=== PATIENT | male | born 1965 | race Caucasian/White ===

== ENCOUNTER 2023-04-11 13:51 | Emergency (ER) | payer OTHER ==
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
[2023-04-11 15:37] VITALS: RESP 18
[2023-04-11 17:04] VITALS: BP 123/82; PULSE 89; TEMP 98.4
== END 2023-04-11 17:12 | disposition home or self-care (01) ==
LOC: EC 13:51
DX: S09.90XA Unspecified injury of head, initial encounter (principal); Y04.0XXA Assault by unarmed brawl or fight, initial encounter; Y92.009 Unspecified place in unspecified non-institutional (private) residence as the place of occurrence of the external cause
CPT/HCPCS: 70450; 93005; 99284